=== PATIENT | male | born 1965 | race Caucasian/White ===

== ENCOUNTER 2016-11-23 07:00 | Observation (INO) | payer BC ==
--- NOTE | 2016-11-23 07:34 | ERNOTE ---
<Arabella Adan - Last Filed: 11/23/16 08:17> Time Seen by Provider: 11/23/16 07:19 Stated Complaint: URI Immunizations: IMMUNIZATION HX Immunizations Up to Date Yes Allergies/Adverse Reactions: Allergies No Known Allergies Allergy (Verified 11/23/16 09:19) Home Medications: HOME MEDICATIONS metFORMIN HCL [Glumetza] 1,000 mg PO BID 11/14/12 [Last Taken Unknown] Amlodipine Besylate 10 mg PO QAM 11/23/16 [Last Taken Unknown] Aspirin/Calcium Carbonate/Mag [Aspirin Buffered 325 mg Tab] 325 mg PO DAILY 08/06 [Last Taken 11/23/16 0530] Atorvastatin Calcium [Lipitor] 80 mg PO DAILY 11/23/16 [Last Taken Unknown] HYDROcodone/ACETAMINOPHEN [Hydrocodon-Acetaminophen 5-325] 2 each PO Q4H PRN 08/06 [Last Taken 11/20/16] Isosorbide Mononitrate 20 mg PO DAILY 11/23/16 [Last Taken Unknown] Linagliptin [Tradjenta] 5 mg PO DAILY 11/23/16 [Last Taken Unknown] Losartan Potassium [Cozaar] 100 mg PO DAILY 11/23/16 [Last Taken Unknown] Metoprolol Tartrate [Lopressor] 50 mg PO BID 11/23/16 [Last Taken Unknown] Spironolactone [Aldactone] 25 mg PO DAILY 11/23/16 [Last Taken Unknown] ED Progress - Results and Orders Patient's Lab Results:: I have reviewed the patient's lab results. - Vital Signs Patient's Vital Signs:: I have reviewed the patient's vital signs. Vital Signs: Vital Signs 11/23/16 11/23/16 11/23/16 07:05 07:38 07:57 Temperature 35.9 C L Pulse Rate 65 64 64 Respiratory 14 11 L 10 L Rate Blood Pressure 168/92 128/88 O2 Sat by Pulse 98 97 98 Oximetry 11/23/16 08:00 Temperature Pulse Rate 63 Respiratory 10 L Rate Blood Pressure 120/87 O2 Sat by Pulse 97 Oximetry - Progress/Reassessment Chief Complaint: Upper Respiratory Symptoms Plan - Plan Plan: By the time this examiner presented to the patient's bedside patient had RD been seen by the previous provider imaging studies were ordered EKG was ordered and the first set of enzymes were negative. The story is that this is a 51-year -old diabetic male who had an RI 2 years ago the RI symptoms were manifested as left sided jaw pain. At 5 AM this morning patient woke up with left-sided jaw pain and severe shortness of breath and diaphoresis to the point where he soaks his sheets. Subsequently he presented to the emergency room. By the time also the patient patient did not have any chest pains or jaw pain or shortness of breath. He did have some nasal discharge and postnasal drainage. On examination his lungs are clear and heart is regular rate and rhythm EKG reveals a normal sinus rhythm. Chest x-ray is normal. First set of enzymes are normal. In light of this patient's history of being a diabetic over the age of 51 status post CABG with symptoms of left-sided jaw pain I think it is in this patient's best interest to be admitted to the hospital for further observation and monitoring of his cardiac status. As such Dr. Randle was consult and this information was relayed to Dr. Randle patient will be admitted to [facility] observation unit for cardiac monitoring. Departure - Departure Clinical Impression: Cardiac angina Disposition: [facility] Condition: Good <Adrian Jacome - Last Filed: 11/24/16 07:34> Date of Service: 11/23/16 Presenting Symptoms:: cough, runny nose Exam Limitations: no limitations Immunizations: IMMUNIZATION HX Immunizations Up to Date Yes - History of Present Ilness Narrative: 51 year old diabetic has been having URI symptoms for the last 4-5 days. This morning at 0200 hours he noted that the bed was wet due to sweating. At 0500 hours he noted left jaw pain, shortness of breath, and continued feelings of being mildly diaphoretic. Complaints of a post nasal drip, but denies any chest pain. No complaints of fevers, chills, N/V/D. The shortness of breath has improved since the onset this morning. Denies any chest pain or arm pain similar to his RI in 2015. s/p two vessel CABG. No previous respiratory problems , and has never smoked. Has been compliant with his medications, and took Imdur this morning. Denies any exposure to sick contacts. Date (Duration): 11/23/16 Timing: other - improving Severity: moderate Frequency/Possible Cause: Reports: no prior episodes Modifying Factors - Improves: Reports: nothing Modifying Factors - Worsens: Reports: nothing, other Associated Symptoms: Reports: shortness of breath, wheezing - earlier this morning Review of Systems - Review of Systems Constitutional: Present: See HPI EYE: Present: no symptoms reported ENT: Present: no symptoms reported Respiratory: Present: See HPI Cardiology: Present: no symptoms reported Gastrointestinal/Abdominal: Present: no symptoms reported Genitourinary: Present: no symptoms reported Musculoskeletal: Present: no symptoms reported Skin: Present: no symptoms reported Neurological: Present: no symptoms reported Endocrine: Present: See HPI Hematologic/Lymphatic: Present: no symptoms reported All Other Systems: All systems neg except as marked - Patient's Past Medical History Patient History - Medical: Diabetes Type 2 Patient History - Cardiac/Respiratory: Hypertension, Hyperlipidemia Patient History - Cancer: No Hx of Cancer Patient History - Surgical Procedures: Cholecystectomy, Coronary Bypass Surgery , Orthopedic Patient History - Other: None - Social History Smoking Status: Never smoker Have you smoked in the past 12 months: No Do you dip or chew tobacco: Yes - Immunizations Immunizations Up to Date: Yes Physical Exam - Physical Exam General Appearance: Present: no apparent distress Head Exam: Present: normal inspection Eye Exam: Normal inspection: bilateral Ears, Nose, Throat: Present: other - nasal congestion Respiratory: Present: no respiratory distress Cardiovascular/Chest: Present: regular rate, rhythm, no murmur Gastrointestinal/Abdominal: Present: nondistended Back Exam: Present: normal inspection Extremity Exam: Present: normal inspection Neurological Exam: Present: alert, oriented Skin Exam: Present: normal color ED Progress - Vital Signs Patient's Vital Signs:: I have reviewed the patient's vital signs. Vital Signs: Vital Signs 11/23/16 07:05 Temperature 35.9 C L Pulse Rate 65 Respiratory 14 Rate Blood Pressure 168/92 O2 Sat by Pulse 98 Oximetry - EKG EKG: NSR EKG read: Interp. by me EKG Comments: sinus rhythm, normal sxis, rate 63 - Transfer of Care Physician Sign Out: Adrian Jacome - Determine if the NTG reduces the left jaw discomfort? Did the neb treatment help? Receiving Physician: Arabella Adan Pending Results: Labs, X-ray results
[2016-11-23] MEDS ORDERED: ALBUTEROL SULFATE/IPRATROPIUM 3 ML NEBU IH ONE ×2 (07:43→07:53)
[2016-11-23] MEDS ORDERED: NITROGLYCERIN 0.4 MG/TAB BTL SL ONE (07:56)
--- OUTSIDE RECORDS SUMMARY | 2016-11-23 07:58 | XMS REPORT | Clinical Summary ---
:1965 Author Organization [facility] [place] [address] Care Team Providers Name Role Phone Unavailable Primary Care Provider Unavailable Source Comments This disclosure is being made pursuant to the [employer] program and maynot contain all information available regarding this patient.[facility] Allergies No Known Allergies Current Medications Be aware that medications may not be up to date as of this document. Alwaysverify current medications with the patient. Prescription Sig. Disp. Refills Start Date End Date Status metFORMIN (GLUCOPHAGE) Take 500 mg by Active 500 MG tablet mouth daily. HYDROcodone-acetaminoph Take 1-2 tablets 75 tablet 0 01/05/2015 Active en (NORCO) 5-325 MG per by mouth every 4 tablet (four) hours as needed. senna-docusate (SENNA Take 1 tablet by 30 tablet 0 01/05/2015 Active PLUS) 8.6-50 MG per mouth 2 (two) tablet times daily. Active Problems Problem Noted Date S/P CABG (coronary artery bypass graft) 01/03/2015 Social History Tobacco Use Types Packs/Day Years Used Date Never Smoker Smokeless Tobacco: Current User Chew Tobacco Cessation:Ready to Quit: Yes Comments: SMOKES AROUND PATIENT. SO PT. IS A SMOKER ([employer]) SHE SAYS IS READY TO QUIT Alcohol Use Drinks/Week oz/Week Comments No Sex Assigned at Date Recorded Not on file Last Filed Vital Signs Vital Sign Reading Time Taken Blood Pressure 133/80 01/06/2015 11:04 AM CDT Pulse 81 01/06/2015 11:04 AM CDT Temperature 36.8 C (98.3 F) 01/06/2015 11:04 AM CDT Respiratory Rate 18 01/06/2015 11:04 AM CDT Oxygen Saturation 91% 01/06/2015 11:04 AM CDT Inhaled Oxygen Concentration - - Weight 120.3 kg (265 lb 3.2 oz) 01/06/2015 8:53 AM CDT Height 180.3 cm (5' 11") 12/31/2014 8:09 PM CDT Body Mass Index 36.99 01/06/2015 8:53 AM CDT Plan of Treatment Health Maintenance Due Date Last Done Comments Eye (Ophthalmology) Exam 1973 Foot Exam 1973 LAB-URINE MICROALBUMIN 1973 Hepatitis C Screening 1981 Tetanus/Pertussis (1 - Tdap) 1982 Colonoscopy 2013 Well Adult Visit 2013 LAB-HgA1C 07/01/2015 12/31/2014 LAB-LIPIDS 01/02/2016 01/01/2015 INFLUENZA IMMUNIZATION (#1) 2016 Implants Implanted Type Area Form Setter Steel Forms Device Expiration Model / Identifier Date Serial / Lot Wire Job Sternotomy 49mm - [id number] N/A: INNOVATIVE 03/22/2019 047- 032 / Implanted:Qty: 1 on 01/03/2015 by Raul Zepeda MD [employer] / [id number] Sut Job Wire Sternotomy 1 - [id number] N/A: ALTO DEVELOPMENT 09/21/2019 [id number] / Implanted:Qty: 2 on 01/03/2015 by Raul Zepeda MD Sternum [employer] / [id number] Flt Pledget Ptfe 3/16x.25in - [id number] N/A: Heart BARD PERIPHERAL 09/17 [id number] / Implanted:Qty: 2 on 01/03/2015 by Raul Zpeeda MD [employer] / [id number] Pwdr Hemoabsorb Missy 3gm - [id number] N/A: Heart BARD ACCESS 2019 [id number] / Implanted:Qty: 2 on 01/03/2015 by Raul Zepeda MD SYSTEMS I / [id number] Results Not on filefrom Last 3 Months Insurance Payer Benefit Plan / Subscriber ID Type Phone Address [facility] [id number] [id number] CHOICE [facility] [address] [place] [address] [address]: [address] [place], [place] [phone] [address]
--- OUTSIDE RECORDS SUMMARY | 2016-11-23 07:58 | XMS REPORT | Summary of Care ---
:1965 Author Organization [facility] Address [address] [place] [address] Care Team Providers Name Role Phone Zaire Palacios Primary Care Physician Encounter Date(s): 06/08/16 - 06/08/16 [facility] [address] [place] [id number] [facility] Discharge Diagnosis: Benign essential HTN Discharge Diagnosis: Obesity Discharge Diagnosis: Hypercholesterolemia Discharge Diagnosis: CAD (coronary artery disease) Discharge Disposition: 01 Discharged to Home or Self Care Attending Physician: Navarro Dee DO Referring Physician: Navarro Dee DO Vital Signs Most recent to oldest [Reference Range]: 1 Peripheral Pulse Rate [60-100 bpm] 73 bpm (06/08/16 10:07 AM) SpO2 [90-100 %] 96 % (06/08/16 10:07 AM) Blood Pressure [90-130/60-90 mmHg] 134/71mmHg *HI* (06/08/16 10:07 AM) Mean Arterial Pressure, Cuff 92 mmHg (06/08/16 10:07 AM) Most recent to oldest [Reference Range]: 1 Height/Length Measured 177.8 cm (06/08/16 10:07 AM) Weight Dosing 119.10 kg1 (06/08/16 10:16 AM) Weight Measured 119.1 kg (06/08/16 10:07 AM) BSA Measured 2.34 m2 (06/08/16 10:07 AM) Body Mass Index Measured 37.67 kg/m2 (06/08/16 10:07 AM) 1Result Comment: This result was because the dosing weight was either not entered or it is>30 days old. This result is based off: Weight Measured June 08, 2016 10:07:00 ICT BUSINESS ANALYST by Sri Sullivan RN Problem List Condition Effective Dates Status Health Status Informant Non-Q wave ST elevation myocardial Active infarction (STEMI)(Confirmed) Benign essential HTN(Confirmed) Active Diabetes(Confirmed) Active Allergies, Adverse Reactions, Alerts No Known Allergies Medications acetaminophen-codeine #3 tab(s), Oral, q6hr interval, 0 Refill(s), Start Date: 02/02/15 13:05:00 CDT Start Date: 02/02/15 Stop Date: 05/19/15 Status: DiscontinuedamLODIPine 10 mg oral tablet 1 tab(s), Oral, Daily, # 90 tab(s), 3 Refill(s), Start Date: 03/22/15 15:18:00 ICT BUSINESS ANALYST, Pharmacy: [place], [place] Start Date: 03/22/15 Status: OrderedamLODIPine 10 mg oral tablet 1 tab(s), Oral, Daily, # 90 tab(s), 0 Refill(s), Start Date: 03/22/15 15:17:00 ICT BUSINESS ANALYST Start Date: 03/22/15 Stop Date: 03/22/15 Status: Discontinuedaspirin 325 mg oral tablet 1 tab(s), Oral, Daily, # 30 tab(s), 0 Refill(s), Start Date: 02/02/15 13:02:00 CDT Start Date: 02/02/15 Status: Ordereddocusate sodium 100 mg oral tablet 1 tab(s), Oral, BID, PRN for constipation, 0 Refill(s), Start Date: 02/02/15 13: 05:00 CDT Start Date: 02/02/15 Stop Date: 06/08/16 Status: DiscontinuedFarxiga 5 mg oral tablet 1 tab(s), Oral, Daily, Start Date: 01/26/16 13:14:00 CDT Start Date: 01/26/16 Stop Date: 06/08/16 Status: DiscontinuedImdur 30 mg oral tablet, extended release 1 tab(s), Oral, qAM, # 30 tab(s), 5 Refill(s), Start Date: 04/12/16 15:48:00 ICT BUSINESS ANALYST , Pharmacy: [place], [place] Start Date: 04/12/16 Status: Orderedisosorbide mononitrate 60 mg oral tablet, extended release 1 tab(s), Oral, qAM, 0 Refill(s), Start Date: 02/02/15 13:03:00 CDT Start Date: 02/02/15 Stop Date: 02/02/15 Status: DiscontinuedLipitor 40 mg oral tablet 1 tab(s), Oral, Daily, # 90 tab(s), 3 Refill(s), Start Date: 02/02/15 13:34:00 CDT, Pharmacy: [place] Start Date: 02/02/15 Stop Date: 04/12/16 Status: DiscontinuedLipitor 40 mg oral tablet 1 tab(s), Oral, Daily, # 90 tab(s), 4 Refill(s), Start Date: 02/02/15 13:24:00 CDT Start Date: 02/02/15 Stop Date: 02/02/15 Status: CompletedLipitor 80 mg oral tablet 1 tab(s), Oral, Daily, # 30 tab(s), 5 Refill(s), Start Date: 04/12/16 15:49:00 ICT BUSINESS ANALYST, Pharmacy: [place] Start Date: 04/12/16 Status: Orderedlisinopril 10 mg, Oral, BID, 0 Refill(s), Start Date: 12/31/14 15:15:00 CDT Start Date: 12/31/14 Stop Date: 02/02/15 Status: Completedlisinopril 20 mg oral tablet 1 tab(s), Oral, Daily, # 30 tab(s), 0 Refill(s), Start Date: 02/02/15 13:01:00 CDT Start Date: 02/02/15 Stop Date: 02/02/15 Status: Completedlisinopril 40 mg oral tablet 1 tab(s), Oral, Daily, # 30 tab(s), 0 Refill(s), Start Date: 02/02/15 13:04:00 CDT Start Date: 02/02/15 Stop Date: 01/26/16 Status: Discontinuedlosartan 100 mg oral tablet 1 tab(s), Oral, Daily, Start Date: 01/26/16 13:16:00 CDT Start Date: 01/26/16 Status: OrderedmetFORMIN 500 mg, Oral, Daily, 0 Refill(s), Start Date: 12/31/14 15:15:00 CDT Start Date: 12/31/14 Stop Date: 01/26/16 Status: DiscontinuedmetFORMIN 1000 mg oral tablet 1 tab(s), Oral, BID, Start Date: 01/26/16 13:15:00 CDT Start Date: 01/26/16 Status: OrderedMetoprolol Tartrate 50 mg oral tablet 1 tab(s), Oral, BID, # 180 tab(s), 0 Refill(s), Start Date: 02/02/15 13:04:00 CDT Start Date: 02/02/15 Stop Date: 01/26/16 Status: Discontinuedmetoprolol tartrate 50 mg oral tablet 1 tab(s), Oral, BID, Start Date: 01/26/16 13:15:00 CDT Start Date: 01/26/16 Status: OrderedNorvasc 5 mg oral tablet 1 tab(s), Oral, Daily, # 90 tab(s), 5 Refill(s), Start Date: 02/02/15 13:19:00 CDT Start Date: 02/02/15 Stop Date: 02/02/15 Status: CompletedNorvasc 5 mg oral tablet 2 tab(s), Oral, Daily, # 90 tab(s), 3 Refill(s), Start Date: 02/02/15 13:33:11 CDT, Pharmacy: [place] Start Date: 02/02/15 Stop Date: 03/22/15 Status: Discontinuedspironolactone 25 mg oral tablet 1 tab(s), Oral, Daily, # 30 tab(s), 5 Refill(s), Start Date: 02/16/15 14:03:00 CDT, Pharmacy: [place] Start Date: 02/16/15 Status: OrderedTradjenta 5 mg oral tablet 1 tab(s), Oral, Daily, # 30 tab(s), 0 Refill(s), Start Date: 06/08/16 10:10:00 ICT BUSINESS ANALYST Start Date: 06/08/16 Status: OrderedVicodin 5 mg-300 mg oral tablet 1 tab(s), Oral, q6hr interval, 0 Refill(s), Start Date: 05/19/15 15:46:00 ICT BUSINESS ANALYST Start Date: 05/19/15 Status: Ordered Results No data available for this section Immunizations No data available for this section Procedures Procedure Date Related Diagnosis Body Site Cardiac catheterization1 04/12/16 CABG x 2 - Coronary artery bypass grafts x 2 12/2014 Complete repair of rotator cuff 2013 Cholecystectomy 2011 1distal LMCA 50% stenosis mid LAD 100% stenosis JIMENEZ to LAD patent SVG to OM2 100% stenosis Social History No data available for this section Assessment and Plan No data available for this section
[2016-11-23 08:06] LABS: Hematocrit 43.2 % (42.0-52.0); Hemoglobin 14.5 gm/dL (13.5-18.0); Mean Cell Volume 82.1 fl (78-100); Mean Corpuscular Hemoglobin 27.6 pg (27-31); Mean Corpuscular Hgb Conc 33.6 g/dl (32-36); Mean Platelet Volume 9.7 fl (6.0-9.5); Neutrophil # 4.5 K/mm3 (1.3-6.0); Neutrophil % 66.3 % (42-75.0); Platelet Count 228 K/mm3 (150-450); Red Blood Count 5.26 M/mm3 (4.7-6.0); Red Cell Distribution Width 13.3 % (11.5-14.0); White Blood Count 6.8 K/mm3 (4.0-10.5)
[2016-11-23 08:18] LABS: Hemoglobin A1C 6.5 % (4.00-6.0)
[2016-11-23 08:24] LABS: BUN/Creatinine Ratio 15.3 (9.0-21.6); Bilirubin, Total 1.3 mg/dL (0.0-1.1); CKMB 0.7 ng/mL (0.0-9.0); Ca. Corrected For Albumin 8.7 mg/dL (8.4-10.2); Potassium 4.3 mmol/L (3.4-4.6); TSH * 0.949 uIU/mL (0.358-3.74); Total Protein 7.5 gm/dL (6.2-8.2)
[2016-11-23 08:29] LABS: Anion Gap 17.6 mmol/L (6.8-13.8); Carbon Dioxide 23.7 mmol/L (24-32.6)
--- OUTSIDE RECORDS SUMMARY | 2016-11-23 08:29 | XMS REPORT | Clinical Summary ---
:1965 Author Organization [facility] [place] [address] Care Team Providers Name Role Phone Unavailable Primary Care Provider Unavailable Source Comments This disclosure is being made pursuant to the [employer] program and maynot contain all information available regarding this patient.[facility] Allergies No Known Allergies Current Medications Be [...] IMMUNIZATION (#1) 2016 Implants Implanted Type Area Inspector Balance Bridge Device Expiration Model / Identifier Date Serial / Lot Wire Job Sternotomy 49mm - [id number] N/A: INNOVATIVE 03/22/2019 047- 032 / Implanted:Qty: 1 on 01/03/2015 by Raul Zepeda MD [employer] / [id number] Sut Job Wire Sternotomy 1 - [id number] N/A: ALTO DEVELOPMENT 09/21/2019 [id number] / Implanted:Qty: 2 on 01/03/2015 by Raul Zepeda MD [employer] / [id number] Flt Pledget Ptfe 3/16x.25in - [id number] N/A: Heart BARD PERIPHERAL 09/17 [id number] / Implanted:Qty: 2 on 01/03/2015 by Raul Zepeda MD [employer] / [id number] Pwdr Hemoabsorb Missy 3gm - [id number] N/A: Heart BARD ACCESS 2019 [id number] / Implanted:Qty: 2 on 01/03/2015 by Raul Zepeda MD SYSTEMS I / [id number] Results Not on filefrom Last 3 Months Insurance Payer Benefit Plan / Subscriber ID Type Phone Address [facility] [id number] [id number] CHOICE [facility] [address] [place] [address] [address]: [address] [place], [place] [phone] [address]
--- NOTE | 2016-11-23 17:06 | HP ---
Chief Complaint - Chief Complaint Date of Service: 11/23/16 Time of Service: 12:30 Chief Complaint: Jaw pain History of Present Illness: Merritt is a 51 yo male with coronary artery disease and prior AL. He presented to the [facility] ER due to jaw pain similar to his prior AL. He reports no injury or precipitating cause. No change in diet, activity, or medication. Evaluation in the ER was negative for acute AL. However with his history and previously similar symptoms with his last AL, ER requested admission for further evaluation. At the time he arrived to the floor his jaw pain was resolved. He is unsure what caused it. He has no current symptoms. ECG and troponin show no evidence of acute AL. - Patient's Past Medical History Patient History - Medical: Diabetes Type 2, Kidney stone Patient History - Cardiac/Respiratory: Hypertension, Hyperlipidemia, Myocardial Infarction Patient History - Cancer: No Hx of Cancer Patient History - Surgical Procedures: Cholecystectomy, Colonoscopy, Coronary Bypass Surgery, Orthopedic Patient History - Other: None - Family History Mother Family History - Medical: , Diabetes Type 2 Family History - Cardiac/Respiratory: CVA/Stroke Family History - Cancer: No pertinent family hx Father Family History - Medical: , No pertinent hx Family History - Cardiac/Respiratory: Myocardial Infarction Family History - Cancer: Other - Social History Living Situations: spouse Abuse History: No History of abuse Psych History: No pertinent hx Smoking Status: Never smoker Have you smoked in the past 12 months: No Do you dip or chew tobacco: Yes - 1/3 can per day Patient requests Smoking Cessation Consult: No Initiate information on Smoking Cessation: No Alcohol Use: rarely Drug Use: none - Immunizations Immunizations Up to Date: Yes Review Of Systems (GEN) - Review of Systems Generalized/Overall Review: Present: No Symptoms Reported EENTM: Present: No Symptoms Reported Respiratory: Present: No Symptoms Reported Cardiac: Present: No Symptoms Reported Abdominal: Present: No Symptoms Reported Genitourinary: Present: No Symptoms Reported Musculoskeletal: Present: No Symptoms Reported Neurological: Present: No Symptoms Reported Skin: Present: No Symptoms Reported Endocrine: Present: No Symptoms Reported Allergies/Adverse Reactions: Allergies Allergy/AdvReac Type Severity Reaction Status Date / Time No Known Allergies Allergy Verified 11/23/16 09:19 Home Medications: HOME MEDICATIONS metFORMIN HCL [Glumetza] 1,000 mg PO BID 11/14/12 [Last Taken Unknown] Amlodipine Besylate 10 mg PO QAM 11/23/16 [Last Taken Unknown] Aspirin/Calcium Carbonate/Mag [Aspirin Buffered 325 mg Tab] 325 mg PO DAILY 08/06 [Last Taken 11/23/16 0530] Atorvastatin Calcium [Lipitor] 80 mg PO DAILY 11/23/16 [Last Taken Unknown] HYDROcodone/ACETAMINOPHEN [Hydrocodon-Acetaminophen 5-325] 2 each PO Q4H PRN 08/06 [Last Taken 11/20/16] Isosorbide Mononitrate 20 mg PO DAILY 11/23/16 [Last Taken Unknown] Linagliptin [Tradjenta] 5 mg PO DAILY 11/23/16 [Last Taken Unknown] Losartan Potassium [Cozaar] 100 mg PO DAILY 11/23/16 [Last Taken Unknown] Metoprolol Tartrate [Lopressor] 50 mg PO BID 11/23/16 [Last Taken Unknown] Spironolactone [Aldactone] 25 mg PO DAILY 11/23/16 [Last Taken Unknown] Exam - Exam Vital Signs: Vital Signs - Last Taken Temp 36.8 C 11/23/16 14:25 Pulse 64 11/23/16 16:00 Resp 12 11/23/16 14:25 BP 132/72 11/23/16 14:25 Pulse Ox 98 11/23/16 14:25 Constitutional: Present: Alert, Oriented x3, Cooperative ENT Exam: Present: hearing grossly normal Eye Exam: bilateral eye: normal inspection Respiratory: Present: lungs clear, normal breath sounds Cardiovascular/Chest: Present: regular rate, rhythm, no murmur Abdomen: Present: Normal bowel sounds, soft, nontender, nondistended Extremity: Present: normal inspection Skin Exam: Present: normal color, warm/dry, no cyanosis Appearance: Present: appropriate appearance, appropriate insight Eye contact: Present: cooperative, good eye contact, normal speech Diagnostic Studies: Laboratory Results WBC 6.8 K/mm3 (4.0-10.5) 11/23/16 07:25 RBC 5.26 M/mm3 (4.7-6.0) 11/23/16 07:25 Hgb 14.5 gm/dL (13.5-18.0) 11/23/16 07:25 Hct 43.2 % (42.0-52.0) 11/23/16 07:25 MCV 82.1 fl (78-100) 11/23/16 07:25 MCH 27.6 pg (27-31) 11/23/16 07:25 MCHC 33.6 g/dl (32-36) 11/23/16 07:25 RDW 13.3 % (11.5-14.0) 11/23/16 07:25 Plt Count 228 K/mm3 (150-450) 11/23/16 07:25 MPV 9.7 fl (6.0-9.5) H 11/23/16 07:25 Immature Gran % (Auto) 0.10 % (0.001-0.429) 11/23/16 07:25 Immature Gran # (Auto) 0.01 K/mm3 (0.000-0.0310) 11/23/16 07:25 Neutrophils % 66.3 % (42-75.0) 11/23/16 07:25 Lymphocytes % 19.8 % (20-51) L 11/23/16 07:25 Monocytes % 10.9 % (0.0-9) H 11/23/16 07:25 Eosinophils % 2.6 % (0.0-3.0) 11/23/16 07:25 Basophils % 0.3 % (0.0-1.0) 11/23/16 07:25 Nucleated RBC % 0.0 k/mm3 (0-1) 11/23/16 07:25 Neutrophils # 4.5 K/mm3 (1.3-6.0) 11/23/16 07:25 Lymphocytes # 1.4 k/mm3 (1.5-3.5) L 11/23/16 07:25 Monocytes # 0.7 k/mm3 (0.0-1.0) 11/23/16 07:25 Eosinophils # 0.2 k/mm3 (0.0-0.7) 11/23/16 07:25 Absolute Basophils 0.0 k/mm3 (0.0-0.1) 11/23/16 07:25 Sodium 140 mmol/L (132-142) 11/23/16 07:30 Plasma Sodium 140 mmol/L (130-142) 11/23/16 07:30 Potassium 4.3 mmol/L (3.4-4.6) 11/23/16 07:30 Chloride 103 mmol/L (97-106) 11/23/16 07:30 Carbon Dioxide 23.7 mmol/L (24-32.6) L 11/23/16 07:30 Anion Gap 17.6 mmol/L (6.8-13.8) H 11/23/16 07:30 BUN 15 mg/dL (6-23) 11/23/16 07:30 Creatinine 0.98 mg/dL (0.4-1.4) 11/23/16 07:30 Est GFR (Non-Af Amer) 85 mL/min (60-130) D 11/23/16 07:30 BUN/Creatinine Ratio 15.3 (9.0-21.6) 11/23/16 07:30 Random Glucose 125 mg/dL (70-110) H 11/23/16 07:30 Mean Blood Glucose 130 mg/dL 11/23/16 07:30 Hemoglobin A1c 6.5 % (4.00-6.0) H 11/23/16 07:30 Calcium 9.0 mg/dL (7.9-10.9) 11/23/16 07:30 Calcium Adj for Albumin 8.7 mg/dL (8.4-10.2) 11/23/16 07:30 Total Bilirubin 1.3 mg/dL (0.0-1.1) H 11/23/16 07:30 AST 15 U/L (0-48) 11/23/16 07:30 ALT 30 U/L (19-67) 11/23/16 07:30 Alkaline Phosphatase 85 U/L (50-170) 11/23/16 07:30 CK-MB (CK-2) 0.7 ng/mL (0.0-9.0) 11/23/16 07:30 Troponin I 0.021 ng/ml (0.00-0.10) 11/23/16 14:08 Total Protein 7.5 gm/dL (6.2-8.2) 11/23/16 07:30 Albumin 4.0 gm/dl (3.4-5.0) 11/23/16 07:30 TSH 0.949 uIU/mL (0.358-3.74) 11/23/16 07:30 Assessment/Plan - Assessment/Plan (1) Cardiac angina Assessment: Merritt is a 51 yo male that will be admitted for anginal equivalent with jaw pain similar to his prior AL. Will admit to observation on telemetry, will get serial troponins, repeat ECG. If negative may be discharged to home later today. Problem: Acute
--- NOTE | 2016-11-23 17:07 | DS ---
(1) Jaw pain Problem: Acute Description of Stay: Sharyn is a 51 yo male that was admitted to observation for anginal equivalent of jaw pain similar to his prior TN. He had no abnormal events on telemetry, repeat troponins were negative, and ECG showed no acute changes. He will be discharged to home. Unclear etiology to his jaw pain. Procedures Performed: none Discharge Disposition: Home self care Disposition: Home self-care Condition: Good Discharge Activity: Activity as tolerated Discharge Diet: Consistent carbs Referrals: Zaire Palacios MD [Primary Care Provider] - One Week Problem Oriented Discharge Instructions to Patient/Family: Chest Pain Observation Additional Patient Instructions (free text): Staff will call with follow up appointment on Saturday11/26/16. Complete Home Medications List: Complete Home Medication List: metFORMIN HCL [Glumetza] 1,000 mg PO BID 11/14/12 Amlodipine Besylate 10 mg PO QAM 11/23/16 Aspirin/Calcium Carbonate/Mag [Aspirin Buffered 325 mg Tab] 325 mg PO DAILY 08/06 Atorvastatin Calcium [Lipitor] 80 mg PO DAILY 11/23/16 HYDROcodone/ACETAMINOPHEN [Hydrocodon-Acetaminophen 5-325] 2 each PO Q4H PRN 08/06 Isosorbide Mononitrate 20 mg PO DAILY 11/23/16 Linagliptin [Tradjenta] 5 mg PO DAILY 11/23/16 Losartan Potassium [Cozaar] 100 mg PO DAILY 11/23/16 Metoprolol Tartrate [Lopressor] 50 mg PO BID 11/23/16 Spironolactone [Aldactone] 25 mg PO DAILY 11/23/16
[2016-11-23 17:50] VITALS: BP 157/87
== END 2016-11-23 18:02 | disposition home or self-care (01) ==
LOC: ER 07:00 → MS 08:22
PROVIDERS: ADMIT Family Medicine; ATTEND Family Medicine
DX: R68.84 Jaw pain (principal); E11.9 Type 2 diabetes mellitus without complications; I10 Essential (primary) hypertension; Z95.1 Presence of aortocoronary bypass graft; E78.5 Hyperlipidemia, unspecified
CPT/HCPCS: 36415; 71020; 80053; 82553; 83036; 84443; 84484; 85025; 93005; 94640; 99284; G0378

== ENCOUNTER 2019-06-12 20:30 | Observation (INO) ==
--- NOTE | 2019-06-12 20:48 | ERNOTE ---
Chest Pain/Cardiac HPI Time Seen by Provider: 06/12/19 20:40 Source: patient, past records Exam Limitations: no limitations Immunizations: IMMUNIZATION HX Immunizations Up to Date Yes History of Influenza Vaccine No Hx Pneumococcal Vaccination No Allergies/Adverse Reactions: Allergies No Known Allergies Allergy (Verified 06/12/19 20:45) Home Medications: HOME MEDICATIONS metFORMIN HCL [Glumetza] 1,000 mg PO BID 11/14/12 [Last Taken Unknown] Atorvastatin Calcium [Lipitor] 40 mg PO DAILY 11/23/16 [Last Taken Unknown] Losartan Potassium [Cozaar] 100 mg PO DAILY 11/23/16 [Last Taken Unknown] Metoprolol Tartrate [Lopressor] 50 mg PO BID 11/23/16 [Last Taken Unknown] Spironolactone [Aldactone] 25 mg PO DAILY 11/23/16 [Last Taken Unknown] Aspirin [Aspirin Chewable] 81 mg PO DAILY 06/12/19 [Last Taken Unknown] Clopidogrel Bisulfate [Plavix] 75 mg PO DAILY 06/12/19 [Last Taken Unknown] HYDROcodone/ACETAMINOPHEN [[place] 10-325 Tablet] 1 ea PO TID PRN 06/12/19 [Last Taken Unknown] Isosorbide Mononitrate [Isosorbide Mononitrate ER] 30 mg PO DAILY 06/12/19 [Last Taken Unknown] amLODIPine BESYLATE [Norvasc] 10 mg PO DAILY 06/12/19 [Last Taken Unknown] Narrative: Patient is a 54-year-old white male with past medical history significant for hypertension, hyperlipidemia, diabetes and previous two-vessel CABG post acute WI, recently seen by his PCP and states that his blood pressures and labs were all good, began with left-sided chest pain this morning. The pain did seem to worsen with activity but did not radiate into his neck or arm like his previous acute WI did and was not associated with shortness of breath or nausea, but symptoms worsen throughout the day. Just prior to coming to the ER he was having significant heartburn and pain radiating up into his left jaw similar to his previous acute WI. He denied any diaphoresis but did have some shortness of breath at that time. He took an 81 mg chewable aspirin prior to his arrival here. He has been compliant with all other medications. His pain was present at time of arrival in the ER. Timing: constant, getting worse Severity/Quality: pressure, sharp Location: left chest Chest Pain Radiation: jaw Activities at Onset: none Modifying Factors - Improves: Present: nothing Modifying Factors - Worsens: Present: exercise Nitro Today/Relief: no nitro taken today Aspirin Treatment Today: 81 mg x 1 Associated Symptoms: Present: heartburn Prior Chest Pain/Cardiac Workup: Reports: prior chest pain, heart attack, cardiac cath Prior Treatment: Reports: recently seen Review of Systems - Review of Systems Constitutional: Present: no symptoms reported EYE: Present: no symptoms reported ENT: Present: no symptoms reported Respiratory: Present: See HPI, shortness of breath Cardiology: Present: See HPI, chest pain. Absent: palpitations, syncope, edema, claudication Gastrointestinal/Abdominal: Present: See HPI Genitourinary: Present: no symptoms reported Musculoskeletal: Present: no symptoms reported Skin: Present: no symptoms reported Neurological: Present: no symptoms reported Endocrine: Present: no symptoms reported Hematologic/Lymphatic: Present: no symptoms reported Psych: Present: no symptoms reported Medical History (Last Reviewed 06/13/19 @ 01:21 by Noel Ochoa MD) CVA (cerebral vascular accident) Diabetes Hyperlipemia Hypertension Surgical History: Surgical History (Last Reviewed 06/13/19 @ 01:21 by Noel Ochoa MD) H/O knee surgery H/O shoulder surgery H/O total adrenalectomy History of open heart surgery Hx of cholecystectomy Status post double vessel coronary artery bypass Social History: (Last Reviewed 06/13/19 @ 01:21 by Noel Ochoa MD) Tobacco: Smoking Status: Never smoker Alcohol: alcohol intake: never Substance Use: substance use type: does not use Physical Exam - Physical Exam General Appearance: Present: wd/wn, alert, moderate distress Head Exam: Present: normal inspection Eye Exam: Normal inspection: bilateral, PERRL: bilateral, EOMI: bilateral Ears, Nose, Throat: Present: normal ENT inspection Neck: Present: normal inspection, supple Respiratory: Present: no respiratory distress, normal breath sounds, no a ccessory muscle use, chest nontender, lungs clear Cardiovascular/Chest: Present: regular rate, rhythm, no murmur, normal peripheral pulses Gastrointestinal/Abdominal: Present: normal bowel sounds, nontender, nondistended, soft, no organomegaly Extremity Exam: Present: normal inspection, non-tender, normal range of motion, no edema Neurological Exam: Present: alert, oriented, normal mood/affect, no motor/sensory deficits Skin Exam: Present: normal color Progress - Results and Orders Patient's Lab Results:: I have reviewed the patient's lab results. Results and Orders: Patient's labs are all negative or normal, including initial troponin I of 0.017 - Vital Signs Patient's Vital Signs:: I have reviewed the patient's vital signs. - EKG EKG #1 EKG: NSR, LBBB, unchanged from - 10/16/17 EKG read: Interp. by me - X-Ray X-Ray #1 X-Ray: chest Interpretation: Interp. by me X-ray Comments: No acute changes seen. Sternotomy wires present. - Progress/Reassessment Progress:: Improved - Transfer of Care Expected Disposition: Admit Plan - Plan Plan: Patient's initial labs and EKG and chest x-ray were all non-concerning for an acute WI. Patient did state that his jaw pain occurred just prior to him heading to the ER and his left chest pain also intensified at that time. Because of his significant past medical history of coronary artery disease, two- vessel CABG and history of hypertension, hyperlipidemia and diabetes feel it is appropriate that he at least be put in the hospital on observations for repeat EKG and troponin I. Case was discussed with Dr. Martinez who accepts patient for admission. Departure Clinical Impression: Jaw pain Chest pain Qualifiers: Chest pain type: unspecified Qualified Code(s): R07.9 - Chest pain, unspecified Diabetes Qualifiers: Diabetes mellitus type: type 2 Diabetes mellitus correction insulin use: without correction use Diabetes mellitus complication status: without complication Qualified Code(s): E11.9 - Type 2 diabetes mellitus without complications - Departure Disposition: Still a patient Condition: Stable
[2019-06-12 21:03] LABS: Hematocrit 41.8 % (42.0-52.0); Mean Cell Volume 84.3 fl (78-100); Mean Corpuscular Hemoglobin 28.2 pg (27-31); Mean Corpuscular Hgb Conc 33.5 g/dl (32-36); Neutrophil # 5.1 K/mm3 (1.3-6.0); Neutrophil % 62.7 % (42-75.0); Platelet Count 239 K/mm3 (150-450); Red Blood Count 4.96 M/mm3 (4.7-6.0); Red Cell Distribution Width 13.3 % (11.5-14.0); White Blood Count 8.1 K/mm3 (4.0-10.5)
[2019-06-12 21:23] LABS: ALT 29 U/L (19-67); AST 15 U/L (0-48); Albumin * 3.7 gm/dl (3.4-5.0); Alkaline Phosphatase * 70 U/L (50-170); Anion Gap 11.1 mmol/L (6.8-13.8); BUN/Creatinine Ratio 16.3 (9.0-21.6); Bilirubin, Total 0.8 mg/dL (0.0-1.1); Blood Urea Nitrogen 17 mg/dL (6-23); Ca. Corrected For Albumin 9.3 mg/dL (8.4-10.2); Calcium * 9.4 mg/dL (7.9-10.9); Chloride 103 mmol/L (97-106); Glucose * 156 mg/dL (70-110); Potassium 4.1 mmol/L (3.4-4.6); Sodium 140 mmol/L (132-142); Total Protein 7.4 gm/dL (6.2-8.2)
[2019-06-12 21:25] LABS: Troponin I Less than 0.017 ng/mL (0.00-0.10)
[2019-06-13] MEDS ORDERED: CLOPIDOGREL BISULFATE 75 MG TABLET PO SCH (09:00)
[2019-06-13] MEDS ORDERED: amLODIPine BESYLATE 10 MG TABLET PO SCH (09:00)
[2019-06-13] MEDS ORDERED: LOSARTAN POTASSIUM 50 MG TABLET PO SCH (09:00)
[2019-06-13] MEDS ORDERED: ASPIRIN 81 MG TAB.CHEW PO SCH (09:00)
[2019-06-13] MEDS ORDERED: ROSUVASTATIN CALCIUM 20 MG TABLET PO SCH (09:00)
[2019-06-13] MEDS ORDERED: METOPROLOL TARTRATE 50 MG TABLET PO SCH (09:00)
[2019-06-13] MEDS ORDERED: ISOSORBIDE MONONITRATE 30 MG TAB.SR.24H PO SCH (09:00)
[2019-06-13] MEDS ORDERED: SPIRONOLACTONE 25 MG TABLET PO SCH (09:00)
--- NOTE | 2019-06-13 09:06 | HPDIS ---
Chief Complaint - Chief Complaint Date of Service: 06/13/19 Time of Service: 08:58 Chief Complaint: chest pain History of Present Illness: Merritt Farr is a 54-year-old white male with past medical history of hypertension, hyperlipidemia, diabetes mellitus type 2, coronary artery disease status post CABG post acute [place] in 2014 who was admitted on 06/12/2019 because of chest pain. He described his chest pain as chest tightness, left chest-sided increased with activity and back did not radiate, not associated with nausea, diaphoresis or shortness of breath like his prior acute [place]. On his way to the emergency room the patient was having heartburn radiating to his left jaw and he said that this was similar to his previous acute WA. He took his 81 mg chewable aspirin. In the emergency room his EKG showed normal sinus rhythm with left bu ndle branch block not significantly changed from his prior EKG. His first set of troponin was less than 0.017. The patient was admitted for observation under chest pain protocol. Medical History (Last Reviewed 06/13/19 @ 01:21 by Noel Ochoa MD) CVA (cerebral vascular accident) Diabetes Hyperlipemia Hypertension Surgical History: Surgical History (Last Reviewed 06/13/19 @ 01:21 by Noel Ochoa MD) H/O knee surgery H/O shoulder surgery H/O total adrenalectomy History of open heart surgery Hx of cholecystectomy Status post double vessel coronary artery bypass Social History: (Last Reviewed 06/13/19 @ 01:21 by Noel Ochoa MD) Tobacco: Smoking Status: Never smoker Alcohol: alcohol intake: never Substance Use: substance use type: does not use Review Of Systems (GEN) - Review of Systems Generalized/Overall Review: Absent: Chills, Fever EENTM: Absent: Blurred Vision Cardiac: Present: Chest Pain. Absent: Edema, Palpitations Abdominal: Absent: Nausea, Vomiting, Abdominal Pain Genitourinary: Absent: Urgency, Frequency Musculoskeletal: Absent: Joint Pain Neurological: Absent: Headache Skin: Absent: Lesions, Rash Misc: All systems neg except as marked Immunizations: IMMUNIZATION HX Immunizations Up to Date Yes History of Influenza Vaccine Yes Hx Pneumococcal Vaccination No Allergies/Adverse Reactions: Allergies Allergy/AdvReac Type Severity Reaction Status Date / Time No Known Allergies Allergy Verified 06/12/19 20:45 Home Medications: HOME MEDICATIONS metFORMIN HCL [Glumetza] 1,000 mg PO BID 11/14/12 [Last Taken Unknown] Atorvastatin Calcium [Lipitor] 40 mg PO DAILY 11/23/16 [Last Taken Unknown] Losartan Potassium [Cozaar] 100 mg PO DAILY 11/23/16 [Last Taken Unknown] Metoprolol Tartrate [Lopressor] 50 mg PO BID 11/23/16 [Last Taken Unknown] Spironolactone [Aldactone] 25 mg PO DAILY 11/23/16 [Last Taken Unknown] Aspirin [Aspirin Chewable] 81 mg PO DAILY 06/12/19 [Last Taken Unknown] Clopidogrel Bisulfate [Plavix] 75 mg PO DAILY 06/12/19 [Last Taken Unknown] HYDROcodone/ACETAMINOPHEN [[place] 10-325 Tablet] 1 ea PO TID PRN 06/12/19 [Last Taken Unknown] amLODIPine BESYLATE [Norvasc] 10 mg PO DAILY 06/12/19 [Last Taken Unknown] Isosorbide Mononitrate [Imdur] 60 mg PO DAILY #30 tab.sr.24h 06/13/19 [Last Taken Unknown] Exam - Exam Vital Signs: Vital Signs - Last Taken Temp 36.8 C 06/13/19 06:19 Pulse 60 06/13/19 08:20 Resp 18 06/13/19 06:19 BP 136/77 06/13/19 08:20 Pulse Ox 96 06/13/19 06:19 Constitutional: Present: Alert, Oriented x3, Cooperative ENT Exam: Present: hearing grossly normal Eye Exam: bilateral eye: normal inspection, PERRL, EOMI Neck: Present: supple. Absent: lymphadenopathy (R), lymphadenopathy (L) Respiratory: Present: chest non-tender, normal breath sounds, No rales, No wheezing Cardiovascular/Chest: Present: regular rate, rhythm, no JVD, no murmur Abdomen: Present: Normal bowel sounds, soft, nontender, nondistended Extremity: Present: no pedal edema, no calf tenderness Diagnostic Studies: Abnormal Lab Results 06/12/19 06/12/19 Range/Units 20:53 20:53 Hct 41.8 L (42.0-52.0) % Monocytes % 9.3 H (0.0-9) % Random Glucose 156 H (70-110) mg/dL Laboratory Results WBC 8.1 K/mm3 (4.0-10.5) 06/12/19 20:53 RBC 4.96 M/mm3 (4.7-6.0) 06/12/19 20:53 Hgb 14.0 gm/dL (13.5-18.0) 06/12/19 20:53 Hct 41.8 % (42.0-52.0) L 06/12/19 20:53 MCV 84.3 fl (78-100) 06/12/19 20:53 MCH 28.2 pg (27-31) 06/12/19 20:53 MCHC 33.5 g/dl (32-36) 06/12/19 20:53 RDW 13.3 % (11.5-14.0) 06/12/19 20:53 Plt Count 239 K/mm3 (150-450) 06/12/19 20:53 MPV 9.0 fl (8-11.3) 06/12/19 20:53 Immature Gran % (Auto) 0.40 % (0.001-0.429) 06/12/19 20:53 Immature Gran # (Auto) 0.03 K/mm3 (0.000-0.0310) 06/12/19 20:53 Neutrophils % 62.7 % (42-75.0) 06/12/19 20:53 Lymphocytes % 25.1 % (20-51) 06/12/19 20:53 Monocytes % 9.3 % (0.0-9) H 06/12/19 20:53 Eosinophils % 2.0 % (0.0-3.0) 06/12/19 20:53 Basophils % 0.5 % (0.0-1.0) 06/12/19 20:53 Nucleated RBC % 0.0 k/mm3 (0-1) 06/12/19 20:53 Neutrophils # 5.1 K/mm3 (1.3-6.0) 06/12/19 20:53 Lymphocytes # 2.03 k/mm3 (1.5-3.5) 06/12/19 20:53 Monocytes # 0.8 k/mm3 (0.0-1.0) 06/12/19 20:53 Eosinophils # 0.2 k/mm3 (0.0-0.7) 06/12/19 20:53 Absolute Basophils 0.0 k/mm3 (0.0-0.1) 06/12/19 20:53 Sodium 140 mmol/L (132-142) 06/12/19 20:53 Plasma Sodium 141 mmol/L (130-142) 06/12/19 20:53 Potassium 4.1 mmol/L (3.4-4.6) 06/12/19 20:53 Chloride 103 mmol/L (97-106) 06/12/19 20:53 Carbon Dioxide 30.0 mmol/L (24-32.6) 06/12/19 20:53 Anion Gap 11.1 mmol/L (6.8-13.8) 06/12/19 20:53 BUN 17 mg/dL (6-23) 06/12/19 20:53 Creatinine 1.04 mg/dL (0.4-1.4) 06/12/19 20:53 Est GFR (Non-Af Amer) 79 mL/min (60-130) D 06/12/19 20:53 BUN/Creatinine Ratio 16.3 (9.0-21.6) 06/12/19 20:53 Random Glucose 156 mg/dL (70-110) H 06/12/19 20:53 Calcium 9.4 mg/dL (7.9-10.9) 06/12/19 20:53 Calcium Adj for Albumin 9.3 mg/dL (8.4-10.2) 06/12/19 20:53 Total Bilirubin 0.8 mg/dL (0.0-1.1) 06/12/19 20:53 AST 15 U/L (0-48) 06/12/19 20:53 ALT 29 U/L (19-67) 06/12/19 20:53 Alkaline Phosphatase 70 U/L (50-170) 06/12/19 20:53 Troponin I Less than 0.017 ng/mL (0.00-0.10) 06/13/19 05:15 Total Protein 7.4 gm/dL (6.2-8.2) 06/12/19 20:53 Albumin 3.7 gm/dl (3.4-5.0) 06/12/19 20:53 Assessment/Plan - Narrative Narrative: Chest pain rule out acute coronary syndrome. We will do serial EKG and troponin. We will continue patient's home medications. - Assessment/Plan (1) Chest pain Problem: Acute Qualifiers: Chest pain type: unspecified Qualified Code(s): R07.9 - Chest pain, unspecified (2) Diabetes Problem: Chronic Qualifiers: Diabetes mellitus type: type 2 Diabetes mellitus half-way insulin use: without dedicated intermodal truck driver use Diabetes mellitus complication status: without complication Qualified Code(s): E11.9 - Type 2 diabetes mellitus without complications (3) CAD (coronary artery disease) Problem: Chronic Qualifiers: Coronary Disease-Associated Artery/Lesion type: bypass graft (4) CVA (cerebral vascular accident) Problem: Chronic (5) Hypertension Problem: Chronic (1) Chest pain Diagnosis(s): He ruled out for acute myocardial infarction. He was told that he needs an outpatient stress test and he will need to follow-up with his slug press operator next week. His slug press operator is Dr. Dee in [facility]. Problem: Resolved Qualifiers: Chest pain type: precordial pain Qualified Code(s): R07.2 - Precordial pain (2) Diabetes Problem: Chronic Qualifiers: Diabetes mellitus type: type 2 Diabetes mellitus dedicated intermodal truck driver insulin use: without half-way use Diabetes mellitus complication status: without complication Qualified Code(s): E11.9 - Type 2 diabetes mellitus without complications (3) CAD (coronary artery disease) Problem: Chronic Qualifiers: Coronary Disease-Associated Artery/Lesion type: bypass graft [place] vs. transplanted heart: [place] heart Associated angina: with stable angina Qualified Code(s): I25.708 - Atherosclerosis of coronary artery bypass graft(s), unspecified, with other forms of angina pectoris (4) CVA (cerebral vascular accident) Problem: Chronic Qualifiers: CVA mechanism: unspecified Qualified Code(s): I63.9 - Cerebral infarction, unspecified (5) Hypertension Problem: Chronic Qualifiers: Hypertension type: essential hypertension Qualified Code(s): I10 - Essential (primary) hypertension Date of Discharge:: 06/13/19 Hospital Course: Merritt Farr is a 54-year-old white male with past medical history of hypertension, hyperlipidemia, diabetes mellitus type 2, coronary artery disease status post CABG post acute [place] in 2014 who was admitted on 06/12/2019 because of chest pain. He described his chest pain as chest tightness, left chest-sided increased with activity and back did not radiate, not associated with nausea, diaphoresis or shortness of breath like his prior acute [place]. On his way to the emergency room the patient was having heartburn radiating to his left jaw and he said that this was similar to his previous acute [place]. He took his 81 mg chewable aspirin. In the emergency room his EKG showed normal sinus rhythm with left bundle branch block not significantly changed from his prior EKG. His first set of troponin was less than 0.017. The patient was admitted for observation under chest pain protocol. Overnight the patient has had no chest pain and his follow-up EKG showed no change and his troponin was still less than 0.017. The patient was ruled out for acute myocardial infarction but he was told to make an appointment with his slug press operator in [facility] this Saturday as he will likely need an outpatient stress test. He is already on aspirin, metoprolol, atorvastatin, losartan,ASA, clopidrogel, and isosorbide mononitrate. We will increase his isosorbide mononitrate to 60 mg p.o. daily from 30 mg. He knows to go to the emergency room if chest pain similar to his prior chest pains when he had his acute [place] to go to the emergency room. Procedures Performed: none Results and Findings: Lab Pending Results 06/12/19 20:53: WBC 8.1, RBC 4.96, Hgb 14.0, Hct 41.8 L, MCV 84.3, MCH 28.2, MCHC 33.5, RDW 13.3, Plt Count 239, MPV 9.0, Immature Gran % (Auto) 0.40, Immature Gran # (Auto) 0.03, Neutrophils % 62.7, Lymphocytes % 25.1, Monocytes % 9.3 H, Eosinophils % 2.0, Basophils % 0.5, Nucleated RBC % 0.0, Neutrophils # 5.1, Lymphocytes # 2.03, Monocytes # 0.8, Eosinophils # 0.2, Absolute Basophils 0.0 06/12/19 20:53: Sodium 140, Plasma Sodium 141, Potassium 4.1, Chloride 103, Carbon Dioxide 30.0, Anion Gap 11.1, BUN 17, Creatinine 1.04, Est GFR (Non-Af Amer) 79 D, BUN/Creatinine Ratio 16.3, Random Glucose 156 H, Calcium 9.4, Calcium Adj for Albumin 9.3, Total Bilirubin 0.8, AST 15, ALT 29, Alkaline Phosphatase 70, Troponin I Less than 0.017, Total Protein 7.4, Albumin 3.7 06/13/19 05:15: Troponin I Less than 0.017 Discharge Location: Home Disposition: Home self-care Condition: Stable Discharge Activity: Activity as tolerated Discharge Diet: Consistent carbs, Low salt, Low fat/chol Referrals: Zaire Palacios MD [Primary Care Provider] - Additional Patient Instructions (free text): We make your appointment with Dr Dee on Saturday and give you a call for the appt. time. Follow up with PCP in 2 weeks. Prescriptions (Any new or edited meds): Isosorbide Mononitrate [Imdur] 60 mg PO DAILY #30 tab.sr.24h Transmission Status: Pending to [place], [place] Complete Home Medications List: Complete Home Medication List: metFORMIN HCL [Glumetza] 1,000 mg PO BID 11/14/12 Atorvastatin Calcium [Lipitor] 40 mg PO DAILY 11/23/16 Losartan Potassium [Cozaar] 100 mg PO DAILY 11/23/16 Metoprolol Tartrate [Lopressor] 50 mg PO BID 11/23/16 Spironolactone [Aldactone] 25 mg PO DAILY 11/23/16 Aspirin [Aspirin Chewable] 81 mg PO DAILY 06/12/19 Clopidogrel Bisulfate [Plavix] 75 mg PO DAILY 06/12/19 HYDROcodone/ACETAMINOPHEN [[place] 10-325 Tablet] 1 ea PO TID PRN 06/12/19 amLODIPine BESYLATE [Norvasc] 10 mg PO DAILY 06/12/19 Isosorbide Mononitrate [Imdur] 60 mg PO DAILY #30 tab.sr.24h 06/13/19
[2019-06-13 10:31] VITALS: BP 144/79
== END 2019-06-13 10:37 | disposition home or self-care (01) ==
LOC: ER 20:30 → MS 20:30
PROVIDERS: ADMIT Internal Medicine; ATTEND Internal Medicine
CPT/HCPCS: 36415; 71020; 71046; 80053; 84484; 85025; 93005; 99285; G0378